=== PATIENT | male | born 1965 | race Caucasian/White ===

== ENCOUNTER 2021-06-10 23:17 | Emergency (ER) | payer OTHER ==
[~2021-06-10] VITALS: Ht 185.4 cm; Wt 70.3 kg
[2021-06-10] MEDS ORDERED: CALCIUM500 MG PO (23:57)
[2021-06-10] MEDS ORDERED: POTASSIUM20 PO (23:57)
[2021-06-10] MEDS ORDERED: IRON325 M1 PO (23:58)
[2021-06-10] MEDS ORDERED: ATENOLOL 25 MG25 M1 PO (23:59)
[2021-06-10] MEDS ORDERED: ALBUTEROL2.5 MG/31 INH (23:59)
[2021-06-11 01:07] LABS: ABSOLUTE NEUTROPHILS 2.5 thou/uL (1.4-8.2); BASOPHILS 0.7 % (0.0-2.0); EOSINOPHILS 2.3 % (0.0-3.0); HEMOGLOBIN 8.7 gm/dL (14.0-18.0); LYMPHOCYTES 13.5 % (24.0-44.0); MCH 26.3 pg (26.0-34.0); MCHC 32.4 g/dL (28.0-37.0); MONOCYTES 13.4 % (1.0-8.0); PLATELET COUNT 191 thou/uL (150-400); POLYS 70.1 % (36.0-66.0); RBC 3.33 mil/uL (4.50-6.00); WBC 3.5 thou/uL (4.0-11.0)
[2021-06-11 01:24] LABS: CALCIUM 8.2 mg/dL (8.5-10.1); CREATININE 1.1 mg/dL (0.7-1.3)
[2021-06-11 01:30] LABS: ALBUMIN 3.3 g/dL (3.4-5.0); TOTAL BILIRUBIN 0.4 mg/dL (0.2-1.0); TOTAL PROTEIN 6.5 g/dL (6.4-8.2)
[2021-06-11 03:22] VITALS: BP 103/68
== END 2021-06-11 03:24 | disposition home or self-care (01) ==
LOC: ER 23:17
PROVIDERS: Student in an Organized Health Care Education/Training Program
DX: K59.00 Constipation, unspecified (principal); Z20.822 Contact with and (suspected) exposure to COVID-19; R10.84 Generalized abdominal pain; J44.9 Chronic obstructive pulmonary disease, unspecified; I10 Essential (primary) hypertension; Z79.899 Other long term (current) drug therapy; Z91.041 Radiographic dye allergy status; Z88.6 Allergy status to analgesic agent